=== PATIENT | female | born 1965 | race Caucasian/White ===

== ENCOUNTER 2020-12-17 14:18 | Emergency (ER) | payer MEDICAID ==
[~2020-12-17] VITALS: Ht 167.6 cm; Wt 174.3 kg
[~2020-12-17 14:18] MED LIST: ALBU18HF2 INH; ASPI1CPM9 PO; DULO-31 PO; GABA100C PO; HYDR-3686 PO; MECL-159 PO; NITR100C PO; OXYB5TAB16 PO; RANI300C7 PO; RISP0.5T74 PO; TRAZ-251 PO
[2020-12-17 14:52] VITALS: BP 96/76
[2020-12-17] MEDS ORDERED: ORPH100T2 PO (15:04)
[2020-12-17] MEDS ORDERED: HYDR-3972 PO (15:04)
== END 2020-12-17 15:40 | disposition home or self-care (01) ==
LOC: ER 14:19
DX: M54.2 Cervicalgia (principal); M25.512 Pain in left shoulder; M62.838 Other muscle spasm; R20.2 Paresthesia of skin; G43.909 Migraine, unspecified, not intractable, without status migrainosus; I25.10 Atherosclerotic heart disease of native coronary artery without angina pectoris; I10 Essential (primary) hypertension; E11.9 Type 2 diabetes mellitus without complications; G89.29 Other chronic pain; G47.30 Sleep apnea, unspecified; Z90.49 Acquired absence of other specified parts of digestive tract; Z56.0 Unemployment, unspecified; Z98.890 Other specified postprocedural states; Z79.82 Long term (current) use of aspirin; Z79.899 Other long term (current) drug therapy; Z88.1 Allergy status to other antibiotic agents; Z88.8 Allergy status to other drugs, medicaments and biological substances; Z91.040 Latex allergy status
CPT/HCPCS: 99283

== ENCOUNTER 2022-09-12 11:15 | Day surgery (SDC) | payer MEDICAID ==
[2022-09-03 16:08] LABS: BASOPHILS % (AUTO) 0.4 % (0-1); EOSINOPHILS # (AUTO) 0.1 X10'3 (0-0.9); EOSINOPHILS % (AUTO) 1.1 % (0-6); LYMPHOCYTES # (AUTO) 3.2 X10'3 (1.1-4.8); LYMPHOCYTES % (AUTO) 27.3 % (21-51); MEAN CORPUSCULAR HEMOGLOBIN 24.6 PG (27.0-31.0); MEAN CORPUSCULAR HGB CONC 30.5 g/dL (33.0-36.5); MEAN CORPUSCULAR VOLUME 80.7 FL (78-98); MEAN PLATELET VOLUME 6.8 FL (7.4-10.4); MONOCYTES # (AUTO) 0.7 X10'3 (0-0.9); MONOCYTES % (AUTO) 6.1 % (2-12); NEUTROPHILS # (AUTO) 7.6 X10'3 (1.8-7.7); NEUTROPHILS % (AUTO) 65.1 % (42-75); PRE OP HEMATOCRIT 32.3 % (35.0-45.0); PRE OP PLATELET COUNT 270 X10'3 (140-440); RED BLOOD COUNT 4.01 X10'6 (4.20-5.60); RED CELL DISTRIBUTION WIDTH 17.2 % (11.5-14.5)
[2022-09-03 16:25] LABS: ALBUMIN 2.8 G/DL (3.4-5.0); ALBUMIN/GLOBULIN RATIO 0.6 (1.1-1.5); ALKALINE PHOSPHATASE 110 IU/L (46-116); BLOOD UREA NITROGEN 7 MG/DL (7-18); BUN/CREATININE RATIO 9.9 (10.0-20.0); CHLORIDE 101 MMOL/L (99-107); CREATININE 0.71 MG/DL (0.40-0.90); PRE OP ALT 11 U/L (30-65); PRE OP ANION GAP 6 (8-16); PRE OP AST 15 U/L (10-37); PRE OP BILIRUB, TOTAL 0.3 MG/DL (0.0-1.0); PRE OP GLUCOSE 130 MG/DL (70-104); PRE OP POTASSIUM 3.9 MMOL/L (3.4-5.1); PRE OP SODIUM 137 MMOL/L (135-145); TOTAL PROTEIN 7.2 G/DL (6.4-8.2); eGFR 85 ML/MIN
[2022-09-03 16:38] LABS: PRE OP HEMOGLOBIN 9.9 g/dL (12.0-16.0)
[~2022-09-12] VITALS: Ht 167.6 cm; Wt 158.8 kg
[~2022-09-12 11:15] MED LIST changes: -ALBU18HF2 INH; -ASPI1CPM9 PO; +BUDE10.27 INH; +BUPIVAcaine/PF 2.5mg/ml (0.25%) 10ml vial ONE; -GABA100C PO; +HYDR12.55 PO; +LIDOcaine 0.5% (5mg/ml) 50ml vial ONE; +METF750T46 PO; -NITR100C PO; +ORPH100T4 PO; +PREG50CA64 PO; +PROP10TA10 PO; -RANI300C7 PO; -RISP0.5T74 PO; +RIVA20TA PO; -TRAZ-251 PO; +ceFAZolin inj. 3,000 MG in normal saline 100ml IV soln 100 ML IV ONE; +famotidine 20mg tablet PO ONE; +ringers solution, lacted 1,000 ML IV SCH
[2022-09-12 11:25] VITALS: BP 135/74
[2022-09-12] MEDS ORDERED: BUPIVAcaine/PF 2.5mg/ml (0.25%) 10ml vial IJ ONE (12:17)
[2022-09-12] MEDS ORDERED: fentaNYL/PF 50MCG/1 ML 2ML syringe ONE (12:32)
[2022-09-12] MEDS ORDERED: midazolam 1 mg/ML 2ml injection ONE (12:33)
[2022-09-12 13:04] VITALS: BP 112/58
--- NOTE | 2022-09-12 13:04 | NUR ---
Received from OR via [facility] TO RECOVERY ROOM 7, accompanied by Anesthesiologist DR ROWE and report given by Anesthesiolgist. PT PRESENTS WITH PIV 20G RIGHT AC, LEFT HAND DRESSING CDI,VSS. Addendum: 09/12/22 at 1313 by Stephanie Irvin RN, RN Amended: Links added.
[2022-09-12 13:20] VITALS: BP 118/65
[2022-09-12 13:30] VITALS: BP 115/68
[2022-09-12 13:34] VITALS: BP 115/68
--- NOTE | 2022-09-12 13:34 | NUR ---
PATIENT A&OX4, DENIES PAIN, V/S WNL, SCD OFF, 20G TO RUE D/C, LEFT WRIST DRESSING CDI. ICE AND ELEVATED LUE. I HAVE REVIEWED D/C INSTRUCTIONS WITH PATIENT INSTRUCTIONS WITH PATIENT AND THEY HAVE VERBALIZED UNDERSTANDING. PATIENT D/C HOME WITH ALL BELONGINGS AND FAMILY TRANSPORTED PATIENT HOME. Addendum: 09/12/22 at 1341 by Stephanie Irvin RN, RN Amended: Links added.
== END 2022-09-12 13:34 | disposition home or self-care (01) ==
LOC: PAS 11:15
PROVIDERS: ATTEND Orthopaedic Surgery Hand Surgery
DX: G56.02 Carpal tunnel syndrome, left upper limb (principal); M65.322 Trigger finger, left index finger; M65.312 Trigger thumb, left thumb; G43.909 Migraine, unspecified, not intractable, without status migrainosus; F41.8 Other specified anxiety disorders; F17.210 Nicotine dependence, cigarettes, uncomplicated; G47.30 Sleep apnea, unspecified; Z86.73 Personal history of transient ischemic attack (TIA), and cerebral infarction without residual deficits; Z79.899 Other long term (current) drug therapy; Z98.890 Other specified postprocedural states; Z91.040 Latex allergy status; Z91.041 Radiographic dye allergy status
CPT/HCPCS: 26055; 36415; 64721; 80053; 82948; 85025; 93005; J0690; J2250; J3010; J3490; J7030; J7120; Z7506; Z7512; A4215; A6449